=== PATIENT | male | born 1985 | race American Indian/Alaskan Native ===

== ENCOUNTER 2020-06-13 15:24 | Emergency (ER) | payer MEDICAID ==
--- NOTE | 2020-06-13 17:48 | XRay Report ---
RIGHT HAND 3 VIEWS INDICATION / CLINICAL INFORMATION: right hand pain after fall. COMPARISON: None available. FINDINGS: No significant skeletal abnormality Signer Name: Shelton Mcneill MD FACR Signed: 06/13/2020 5:44 PM Workstation Name: [id number]
--- NOTE | 2020-06-13 17:53 | Emergency Department Report ---
ED Fall HPI - General Chief Complaint: Extremity Injury, Upper Stated Complaint: FALL Time Seen by Provider: 06/13/20 17:17 Source: patient Mode of arrival: Ambulatory - History of Present Illness Initial Comments: Patient is a 34-year-old male who presents emergency room after a slip and fall that occurred 4 days ago. He states that he was wearing socks going up somewhat and stepped in his house. He states he accidentally slipped and fell. He states he caught himself on his right hand. He has associated right hand pain, abrasions to right hand, abrasion to forehead. He denies any loss of consciousness, vision changes, vomiting, numbness, weakness, bowel or bladder incontinence, any other injury. No past medical history. No allergies medications. - Related Data Previous Rx's Medication Instructions Recorded Last Taken Type Naproxen [EC-Naprosyn] 500 mg PO BID PRN #20 tablet. 06/13/20 Unknown Rx Allergies Allergy/AdvReac Type Severity Reaction Status Date / Time No Known Allergies Allergy Unverified 06/13/20 15:46 ED Review of Systems ROS: Stated complaint: FALL Other details as noted in HPI Comment: All other systems reviewed and negative ED Past Medical Hx - Past Medical History Previous Medical History?: No - Surgical History Past Surgical History?: No - Medications Home Medications: Home Medications Medication Instructions Recorded Confirmed Last Taken Type Naproxen [EC-Naprosyn] 500 mg PO BID PRN #20 tablet. 06/13/20 Unknown Rx ED Physical Exam - General Limitations: No Limitations General appearance: alert, in no apparent distress - Head Head exam: Present: other (2 cm superficial abrasion to the middle of the forehead, appears to be healing, no signs of infection, no skull or facial bony ttp, no crepitus, no deformity) - Eye Eye exam: Present: normal appearance, PERRL, EOMI. Absent: periorbital swelling, periorbital tenderness Pupils: Present: normal accommodation - ENT ENT exam: Present: mucous membranes moist - Respiratory Respiratory exam: Absent: respiratory distress, accessory muscle use - Extremities Exam Extremities exam: Present: other (ttp to the right hand at the 3rd and 4th metacarpals, no deformity, superficial abrasions to the right hand, appear to be healing, no signs of infection, FROM of the RUE, no wrist ttp, no snuffbox ttp, neurovascularly intact) - Neurological Exam Neurological exam: Present: alert, oriented X3, CN II-XII intact, normal gait. Absent: motor sensory deficit - Psychiatric Psychiatric exam: Present: normal affect, normal mood - Skin Skin exam: Present: warm, dry ED Course Vital Signs 06/13/20 15:44 Temperature 98.2 F Pulse Rate 63 Respiratory 16 Rate Blood Pressure 130/82 O2 Sat by Pulse 99 Oximetry ED Medical Decision Making - Radiology Data Radiology results: report reviewed Ordering Physician: JARED SONG Date of Service: 06/13/20 Procedure(s): XR hand 3+V RT Accession Number(s): [id number] cc: JARED SONG Fluoro Time In Minutes: RIGHT HAND 3 VIEWS INDICATION / CLINICAL INFORMATION: right hand pain after fall. COMPARISON: None available. FINDINGS: No significant skeletal abnormality Signer Name: Shelton Mcneill MD FACR Signed: 06/13/2020 5:44 PM Workstation Name: [id number] Transcribed By: MS Dictated By: Shelton Mcneill MD Electronically Authenticated By: Shelton Mcneill MD Signed Date/Time: 06/13/201743 DD/ 42 TD/TT: Print - Medical Decision Making Patient is a 34-year-old male who presents emergency room after a slip and fall that occurred 4 days ago. He states that he was wearing socks going up somewhat and stepped in his house. He states he accidentally slipped and fell. He states he caught himself on his right hand. He has associated right hand pain, abrasions to right hand, abrasion to forehead. He denies any loss of consciousness, vision changes, vomiting, numbness, weakness, bowel or bladder incontinence, any other injury. No past medical history. No allergies medications. vss. on exam:2 cm superficial abrasion to the middle of the forehead, appears to be healing, no signs of infection, no skull or facial bony ttp, no crepitus, no deformity, ttp to the right hand at the 3rd and 4th metacarpals, no deformity, superficial abrasions to the right hand, appear to be healing, no signs of infection, FROM of the RUE, no wrist ttp, no snuffbox ttp, neurovascularly intact, no focal neuro deficits. X-ray right hand: No significant skeletal abnormality. [place] CT head rules 0, CT head imaging is not recommended. Do not suspect acute traumatic bony facial injury. Patient given prescription for naproxen. Lawrence wrap placed to the right hand by nurse and remained neurovascularly intact. Advised patient Please take medication as prescribed as needed. May use triple antibiotic or Neosporin ointment. Follow- up with primary care doctor. Follow-up with orthopedic doctor if symptoms are not improving. Please do not wear Lawrence bandage too tightly and do not wear at night while sleeping. Return to emergency room for new or symptoms. Critical care attestation.: If time is entered above; I have spent that time in minutes in the direct care of this critically ill patient, excluding procedure time. ED Disposition Clinical Impression: Right hand pain, Abrasions of multiple sites Fall Qualifiers: Encounter type: initial encounter Qualified Code(s): W19.XXXA - Unspecified fal l, initial encounter Disposition: TO HOME OR SELFCARE Is pt being admited?: No Does the pt Need Aspirin: No Condition: Stable Instructions: Abrasion, Musculoskeletal Pain Additional Instructions: Please take medication as prescribed as needed. May use triple antibiotic or Neosporin ointment. Follow-up with primary care doctor. Follow-up with orthopedic doctor if symptoms are not improving. Please do not wear Lawrence bandage too tightly and do not wear at night while sleeping. Return to emergency room for new or symptoms. Your x-ray shows no signs of fractures or dislocation Prescriptions: Naproxen [EC-Naprosyn] 500 mg PO BID PRN #20 tablet.dr DENISE Reason: pain Referrals: SOLEDAD JAMES MD [Primary Care Provider] - 2-3 Days KYLER SELLERS MD [Staff Physician] - 2-3 Days [facility] [Provider Group] - 2-3 Days Time of Disposition: 17:56 Print Language: LIBYAN
[2020-06-13 17:59] VITALS: BP 130/82
== END 2020-06-13 18:20 | disposition home or self-care (01) ==
LOC: ED 15:24
DX: S60.511A Abrasion of right hand, initial encounter (principal); S00.81XA Abrasion of other part of head, initial encounter; Z79.899 Other long term (current) drug therapy; W01.0XXA Fall on same level from slipping, tripping and stumbling without subsequent striking against object, initial encounter; Y93.89 Activity, other specified; Y92.89 Other specified places as the place of occurrence of the external cause; Y99.8 Other external cause status
CPT/HCPCS: 99283

== ENCOUNTER 2020-09-04 02:02 | Emergency (ER) | payer MEDICAID ==
--- NOTE | 2020-09-04 07:35 | Emergency Department Report ---
ED Laceration HPI - HPI Chief Complaint: Laceration/Recheck/Suture Stated Complaint: FALL/LACERATION UNDER CHIN Time Seen by Provider: 09/04/20 07:22 Occurred When: Today Severity: mild Tetanus Status: Up to Date Laceration Symptoms: Yes Pain, No Foreign Body Sensation, No Numbness, No Weakness Other History: This is a 34-year-old male with no prior medical history who presents the ED complaining of laceration to the chin status post slip and fall at his old last night. Patient states that the floor was wet he was in pain attention slipped and fell and hit his chin. Patient denies any head injury or neck injury. Patient states that he was able to get up after the incident stop the bleeding who presented to the ED. ED Review of Systems ROS: Stated complaint: FALL/LACERATION UNDER CHIN Other details as noted in HPI Comment: All other systems reviewed and negative ED Past Medical Hx - Past Medical History Hx Hypertension: Yes - Social History Smoking Status: Never Smoker - Medications Home Medications: Home Medications Medication Instructions Recorded Confirmed Last Taken Type Naproxen [EC-Naprosyn] 500 mg PO BID PRN #20 tablet. 06/13/20 Unknown Rx Ibuprofen [Motrin 800 MG tab] 800 mg PO Q8HR PRN #30 tablet 09/04/20 Unknown Rx cephALEXin [Keflex] 500 mg PO Q12HR #14 cap 09/04/20 Unknown Rx Laceration Physical Exam - Exam General: Vital signs noted. No distress. Alert and acting appropriately. Wound Length (cm): 2 Laceration Location: Head (Chin) Laceration Exam: Yes Normal Distal CMS, No Foreign Body, No Exposed Tendon, Vessel, or Nerve, No Tendon Injury ED Course Vital Signs 09/04/20 02:16 Temperature 98.2 F Pulse Rate 69 Respiratory 16 Rate Blood Pressure 126/71 O2 Sat by Pulse 99 Oximetry - Laceration /Wound Repair Face Wound Location: face Wound Length (cm): 2 Wound's Depth, Shape: superficial, linear Wound Explored: clean Betadine Prep?: Yes Anesthesia: 1% Lidocaine Volume Anesthetic (ccs): 2 Wound Repaired With: sutures Suture Size/Type: 3:0, proline Number of Sutures: 5 Layer Closure?: No Sterile Dressing Applied?: Yes ED Medical Decision Making - Medical Decision Making This 34-year-old male who presented with chin laceration The 2cm laceration wound was prepped and draped in sterile fashion. Anesthesia was achieved with 2mL of 1% lidocaine. The wound was irrigated with 200cc NS and explored. There were no foreign bodies The wound was reapproximated in 1 layer with 5 suturessuing with 4-0 monofilament sutures in the dermis with continuous sutures percutaneously. There was excellent reapproximation of the wound edges. The patient tolerated the procedure without complication. Discussed with patient to return for suture removal in 7 to 10 days. Discussed completion of antibiotics. Vital signs are normal patient is in no acute distress Critical care attestation.: If time is entered above; I have spent that time in minutes in the direct care of this critically ill patient, excluding procedure time. ED Disposition Clinical Impression: Fall, Laceration of chin Disposition: - TO HOME OR SELFCARE Is pt being admited?: No Does the pt Need Aspirin: No Condition: Stable Instructions: Laceration Care, Adult, [id number] Additional Instructions: Make sure to follow up with the primary care physician as discussed. Take all your medications as you've been prescribed. If you have any worsening symptoms or develop new symptoms please return to ED immediately. Please return to the ED or follow-up with your primary care physician in 7 to 10 days for suture removal. Prescriptions: cephALEXin [Keflex] 500 mg PO Q12HR #14 cap Ibuprofen [Motrin 800 MG tab] 800 mg PO Q8HR PRN #30 tablet PRN Reason: Pain Referrals: PRIMARY CARE, [Primary Care Provider] - 3-5 Days [facility] [Outside] - 3-5 Days Forms: Accompanied Note, Work/School Release Form(ED) Time of Disposition: 08:31
[2020-09-04] MEDS ORDERED: LIDOCAINE (1%) 10 MG/1 ML VIAL 20 ML MDV INFILTRATI NR (07:45)
[2020-09-04 08:55] VITALS: BP 121/85
== END 2020-09-04 08:45 | disposition home or self-care (01) ==
LOC: ED 02:02
DX: S01.81XA Laceration without foreign body of other part of head, initial encounter (principal); I10 Essential (primary) hypertension; Z79.899 Other long term (current) drug therapy; W01.0XXA Fall on same level from slipping, tripping and stumbling without subsequent striking against object, initial encounter; Y93.89 Activity, other specified; Y92.89 Other specified places as the place of occurrence of the external cause; Y99.8 Other external cause status
CPT/HCPCS: 99282

== ENCOUNTER 2020-09-13 18:56 | Emergency (ER) | payer MEDICAID ==
[2020-09-13 20:02] VITALS: BP 122/70
--- NOTE | 2020-09-13 20:50 | Emergency Department Report ---
ED General Adult HPI - General Chief complaint: Laceration/Recheck/Suture Stated complaint: SUTURE REMOVAL Time Seen by Provider: 09/13/20 20:25 Source: patient Mode of arrival: Ambulatory Limitations: No Limitations - History of Present Illness Initial comments: 34-year-old male patient presents to the emergency department for removal of sutures. Patient sustained an accidental laceration to his chin 8 days ago. The laceration was repaired at this facility on September 04. He completed prescribed prophylactic antibiotics. No further complaints. - Related Data Previous Rx's Medication Instructions Recorded Last Taken Type Naproxen [EC-Naprosyn] 500 mg PO BID PRN #20 tablet. 06/13/20 Unknown Rx Ibuprofen [Motrin 800 MG tab] 800 mg PO Q8HR PRN #30 tablet 09/04/20 Unknown Rx cephALEXin [Keflex] 500 mg PO Q12HR #14 cap 09/04/20 Unknown Rx Allergies Allergy/AdvReac Type Severity Reaction Status Date / Time No Known Allergies Allergy Unverified 06/13/20 15:46 ED Review of Systems ROS: Stated complaint: SUTURE REMOVAL Other details as noted in HPI Other: GENERAL: Negative for fever. CARDIOVASCULAR: Negative for chest pain. PULMONARY: Negative for shortness of breath. GASTROINTESTINAL: Negative for abdominal pain. MUSCULOSKELETAL: Negative for back pain. NEUROLOGICAL: Negative for headache. INTEGUMENTARY: Positive for laceration. ED Past Medical Hx - Past Medical History Previous Medical History?: Yes Hx Hypertension: Yes - Surgical History Past Surgical History?: No - Social History Smoking Status: Never Smoker - Medications Home Medications: Home Medications Medication Instructions Recorded Confirmed Last Taken Type Naproxen [EC-Naprosyn] 500 mg PO BID PRN #20 tablet. 06/13/20 Unknown Rx Ibuprofen [Motrin 800 MG tab] 800 mg PO Q8HR PRN #30 tablet 09/04/20 Unknown Rx cephALEXin [Keflex] 500 mg PO Q12HR #14 cap 09/04/20 Unknown Rx ED Physical Exam - General Limitations: No Limitations - Other Other exam information: General: Awake, appropriately interactive, no acute distress. Neck: Supple. Full range of motion intact. Cardiovascular: Normal peripheral perfusion. Pulmonary: No respiratory distress. Patient is speaking normally without use of accessory muscles. Skin: Well-healed laceration to the chin with Prolene sutures in place. Neurological: No facial asymmetry. Speech is clear. Follows commands. Patient is alert and oriented. Musculoskeletal: Moves all four extremities spontaneously with normal range of motion. Psych: Cooperative. Appropriate mood and affect. ED Course Vital Signs 09/13/20 19:56 Temperature 98.3 F Pulse Rate 68 Respiratory 18 Rate Blood Pressure 122/70 - Procedure Description Procedures done: Verbal consent was obtained from the patient. The site was identified. Hand hygiene was observed. Prolene sutures were successfully removed using pickups and surgical scissors. Patient tolerated procedure well without complications. ED Medical Decision Making - Medical Decision Making Patient presents to the emergency department for suture removal, performed without complications. See procedure note for details. No evidence of wound dehiscence or secondary cellulitis. Patient will be discharged home and advised to refrain from shaving the affected area until wound completely heals. Also advised to apply sunscreen to the affected area daily to reduce scarring. Patient expressed understanding and is agreeable to plan of care. Strict return precautions provided. History, exam, diagnostic testing, and current condition do not suggest worrisome pathology to warrant further testing, continued ED treatment, admission, or surgical evaluation at this point. Given the low probability of a significant medical illness, it would be more likely to result in harm than benefit to perform further testing at this stage. Discussed findings, presumptive diagnosis, need for follow-up and specific signs/symptoms that should prompt immediate return to the emergency department. Instructions were explained in detail to the patient in addition to giving written discharge information. Patient expressed understanding and was given the opportunity to ask questions, all of which were satisfactorily answered prior to discharge home. Critical care attestation.: If time is entered above; I have spent that time in minutes in the direct care of this critically ill patient, excluding procedure time. ED Disposition Clinical Impression: Encounter for removal of sutures Disposition: DC-01 TO HOME OR SELFCARE Is pt being admited?: No Does the pt Need Aspirin: No Condition: Stable Instructions: Wound Closure Removal, Care After Additional Instructions: Do not shave your moore for at least 2 weeks to allow for continued wound healing. Apply sunscreen to affected area daily. Follow-up with your primary care provider. Return to the emergency department immediately for new or worsening symptoms. Referrals: [facility] [Provider Group] - 3-5 Days Time of Disposition: 20:52
== END 2020-09-13 20:57 | disposition home or self-care (01) ==
LOC: ED 18:56
DX: S01.81XD Laceration without foreign body of other part of head, subsequent encounter (principal); I10 Essential (primary) hypertension; Z79.899 Other long term (current) drug therapy; X58.XXXD Exposure to other specified factors, subsequent encounter